=== PATIENT | female | born 1970 | race Caucasian/White ===

== ENCOUNTER 2017-02-26 17:58 | Emergency (ER) | payer MEDICARE ==
[~2017-02-26 17:58] MED LIST: ELAVIL 25 MG TA25 MG PO; IMITREX100 MG PO; LOVASTATIN40 MG PO; METHIMAZOLE10 MG PO; PREMARIN 1.251.25 MG PO; PROTONIX 40 MG40 M1 PO; PROZAC40 MG PO; REGLAN10 MG PO; SINEMET 10/100 T1 EA PO; VERAPAMIL ER120 MG PO; VERAPAMIL HCL80 MG PO
[2017-02-26 20:01] LABS: HEMOGLOBIN 12.6 gm/dl (12.3-15.3); RED BLOOD COUNT 4.42 M/UL (4.00-5.10); WHITE BLOOD COUNT 12.2 K/UL (4.5-11.0)
[2017-02-26 20:20] LABS: BUN/CREATININE RATIO 10 (0-10)
== END 2017-02-26 22:42 | disposition home or self-care (01) ==
LOC: ER1 17:58
PROVIDERS: Family Medicine
DX: R06.02 Shortness of breath (principal); K21.9 Gastro-esophageal reflux disease without esophagitis
CPT/HCPCS: 36415; 71020; 80053; 82550; 82553; 83874; 84439; 84443; 84484; 85025; 85379; 93005; 94640; 94664; 96374; 99285; J2060

== ENCOUNTER 2017-03-17 05:03 | Emergency (ER) | payer MEDICARE ==
[2017-03-17 07:00] LABS: HEMOGLOBIN 12.4 gm/dl (12.3-15.3); RED BLOOD COUNT 4.37 M/UL (4.00-5.10); WHITE BLOOD COUNT 10.1 K/UL (4.5-11.0)
[2017-03-17 07:16] LABS: BUN/CREATININE RATIO 15 (0-10)
== END 2017-03-17 13:02 | disposition home or self-care (01) ==
LOC: ER1 05:03
PROVIDERS: Family Medicine
DX: R10.31 Right lower quadrant pain (principal); R11.0 Nausea; R68.83 Chills (without fever)
CPT/HCPCS: 36415; 76705; 80053; 81001; 83690; 85025; 96374; 96375; 96376; 99284; J2270; J2405; J7050; Q9962

== ENCOUNTER 2017-03-21 15:46 | Emergency (ER) | payer MEDICARE ==
[2017-03-21 17:44] LABS: HEMOGLOBIN 12.9 gm/dl (12.3-15.3); RED BLOOD COUNT 4.56 M/UL (4.00-5.10); WHITE BLOOD COUNT 8.9 K/UL (4.5-11.0)
[2017-03-21 18:16] LABS: BUN/CREATININE RATIO 15 (0-10)
== END 2017-03-21 21:50 | disposition home or self-care (01) ==
LOC: ER1 15:46
PROVIDERS: Physician Assistant
DX: K80.50 Calculus of bile duct without cholangitis or cholecystitis without obstruction (principal)
CPT/HCPCS: 36415; 80053; 81001; 82150; 83690; 85025; 96374; 96375; 96376; 99284; J2270; J2405

== ENCOUNTER → 2017-03-22 | Outpatient (CLI) | payer MEDICARE ==
[~2017-03-22] MED LIST changes: +BRINTELLIX10 MG PO; +DESYREL 50 MG T50 MG PO; +DULCOLAX5 MG PO; +FERROUS GLUCON324 M1 PO; +LORTAB 7.5-3251 EACH PO; +ROPINIROLE HCL0.5 MG PO; +ZOFRAN8 MG PO
== END ==
LOC: NM 09:49
DX: R10.11 Right upper quadrant pain (principal); R93.2 Abnormal findings on diagnostic imaging of liver and biliary tract
CPT/HCPCS: 78227; A9537

== ENCOUNTER 2017-03-27 09:36 | Day surgery (SDC) | payer MEDICARE ==
[~2017-03-27] VITALS: Ht 154.9 cm; Wt 80.7 kg
[~2017-03-27 09:36] MED LIST changes: -BRINTELLIX10 MG PO; -DESYREL 50 MG T50 MG PO; -DULCOLAX5 MG PO; -FERROUS GLUCON324 M1 PO; -LORTAB 7.5-3251 EACH PO; -ROPINIROLE HCL0.5 MG PO; -ZOFRAN8 MG PO
[2017-03-27] MEDS ORDERED: DESYREL 50 MG T50 MG PO (10:23)
[2017-03-27] MEDS ORDERED: ELAVIL 25 MG TA25 MG PO (10:24)
[2017-03-27] MEDS ORDERED: FERROUS GLUCON324 M1 PO (10:25)
[2017-03-27] MEDS ORDERED: ROPINIROLE HCL0.5 MG PO (10:26)
[2017-03-27] MEDS ORDERED: BRINTELLIX10 MG PO (10:27)
[2017-03-27] MEDS ORDERED: VERAPAMIL HCL80 MG PO (17:02)
[2017-03-27] MEDS ORDERED: IMITREX100 MG PO (17:02)
[2017-03-27] MEDS ORDERED: ZOFRAN8 MG PO (17:03)
[2017-03-27] MEDS ORDERED: DULCOLAX5 MG PO (17:18)
[2017-03-27] MEDS ORDERED: PROZAC40 MG PO (17:18)
[2017-03-27 21:13] LABS: HEMOGLOBIN 11.9 gm/dl (12.3-15.3); RED BLOOD COUNT 4.2 M/UL (4.00-5.10); WHITE BLOOD COUNT 10.6 K/UL (4.5-11.0)
[2017-03-27 21:29] LABS: BUN/CREATININE RATIO 10 (0-10)
[2017-03-28 02:27] LABS: HEMOGLOBIN 11.3 gm/dl (12.3-15.3); RED BLOOD COUNT 4.03 M/UL (4.00-5.10)
--- NOTE | 2017-03-28 11:27 | NUR ---
REPORTED TO DR. BROOKS PATIENT PULSE OX SATURATION, DR. QUINTANA'S ORDER, ACKNOWLEDGED
--- NOTE | 2017-03-28 12:23 | NUR ---
PATIENT AMBULATES HALLWAY, TOLERATED WELL. DENIES SOB, CHEST PAIN. PATIENT HAS BEEN USING INCENTIVE SPIROMETER UP TO 1000, AND PERFORMING WELL. VERB KNOWLEDGED THE IMPORTANCE OF USING INCENTIVE SPIROMETER.
[2017-03-28] MEDS ORDERED: BRINTELLIX10 MG PO (15:54)
[2017-03-28] MEDS ORDERED: LORTAB 7.5-3251 EACH PO (17:03)
== END 2017-03-28 17:23 | disposition home or self-care (01) ==
LOC: OR 09:36 → M/S 16:06 → OR 03-28 17:23
PROVIDERS: Surgery
PROC: 0FT44ZZ Resection of Gallbladder, Percutaneous Endoscopic Approach (ICD-10-PCS; principal; 2017-03-27 13:30)
DX: K81.1 Chronic cholecystitis (principal); R09.02 Hypoxemia; J98.11 Atelectasis; K21.9 Gastro-esophageal reflux disease without esophagitis; M10.9 Gout, unspecified; E78.00 Pure hypercholesterolemia, unspecified; E78.5 Hyperlipidemia, unspecified; F41.9 Anxiety disorder, unspecified; F32.9 Major depressive disorder, single episode, unspecified; G43.909 Migraine, unspecified, not intractable, without status migrainosus; Z87.442 Personal history of urinary calculi; Z88.1 Allergy status to other antibiotic agents; Z79.899 Other long term (current) drug therapy; Z88.8 Allergy status to other drugs, medicaments and biological substances; Z90.710 Acquired absence of both cervix and uterus; Z90.49 Acquired absence of other specified parts of digestive tract
CPT/HCPCS: 36415; 71010; 80053; 82550; 82553; 83880; 84484; 85025; 85027; 93005; J0690; J1100; J1885; J2250; J2270; J2405; J2550; J2710; J3010; J7030; J7050; J7120; Q9962

== ENCOUNTER 2017-04-25 15:45 | Emergency (ER) | payer MEDICARE ==
[~2017-04-25 15:45] MED LIST changes: +BRINTELLIX10 MG PO; +DESYREL 50 MG T50 MG PO; +DULCOLAX5 MG PO; +FERROUS GLUCON324 M1 PO; +LORTAB 7.5-3251 EACH PO; +ROPINIROLE HCL0.5 MG PO; +ZOFRAN8 MG PO
[2017-04-25 17:27] LABS: HEMOGLOBIN 12.3 gm/dl (12.3-15.3); RED BLOOD COUNT 4.41 M/UL (4.00-5.10); WHITE BLOOD COUNT 9.8 K/UL (4.5-11.0)
[2017-04-25 18:02] LABS: BUN/CREATININE RATIO 11 (0-10)
== END 2017-04-25 21:08 | disposition home or self-care (01) ==
LOC: ER1 15:45
PROVIDERS: Physician Assistant
DX: R07.89 Other chest pain (principal); E78.5 Hyperlipidemia, unspecified; K21.9 Gastro-esophageal reflux disease without esophagitis; F32.9 Major depressive disorder, single episode, unspecified; E87.6 Hypokalemia; F41.9 Anxiety disorder, unspecified; Z88.2 Allergy status to sulfonamides; Z88.8 Allergy status to other drugs, medicaments and biological substances; Z79.899 Other long term (current) drug therapy
CPT/HCPCS: 36415; 71010; 80053; 82550; 82553; 83874; 84484; 85025; 93005; 99285

== ENCOUNTER 2017-05-03 13:57 | Emergency (ER) | payer MEDICARE ==
[2017-05-03 15:03] LABS: HEMOGLOBIN 11.6 gm/dl (12.3-15.3); RED BLOOD COUNT 4.16 M/UL (4.00-5.10)
[2017-05-03 15:32] LABS: BUN/CREATININE RATIO 8 (0-10)
== END 2017-05-03 18:05 | disposition home or self-care (01) ==
LOC: ER1 13:57
PROVIDERS: Emergency Medicine
DX: R07.89 Other chest pain (principal); R10.9 Unspecified abdominal pain; E78.5 Hyperlipidemia, unspecified; F41.9 Anxiety disorder, unspecified; F32.9 Major depressive disorder, single episode, unspecified
CPT/HCPCS: 36415; 71020; 80053; 81001; 83690; 84484; 85025; 85379; 93005; 94664; 96374; 96375; 99285; J2270; J2405

== ENCOUNTER 2020-12-27 11:34 | Emergency (ER) | payer OTHER ==
[~2020-12-27 11:34] MED LIST changes: +BENTYL 20MG TAB20 MG PO; +CORTIZONE-1057 GM TP; +FEOSOL325 MG PO; -FERROUS GLUCON324 M1 PO; +FLAGYL500 MG PO; +HYDROXYZINE HCL10 MG PO; +KEFLEX CAP 500500 MG PO; +NEURONTIN 100100 MG PO; +OMNICEF 300 MG300 MG PO; +PREDNISONE 50 M50 MG PO; +ROBAXIN500 MG PO; +TRILEPTAL150 MG PO; +TRILEPTAL300 MG PO; +TRINTELLIX PO; +VISTARIL25 MG PO; +ZOFRAN4 MG PO
[2020-12-27 14:11] LABS: HEMOGLOBIN 13.1 gm/dl (12.3-15.3); RED BLOOD COUNT 4.31 M/UL (4.00-5.10); WHITE BLOOD COUNT 7.5 K/UL (4.5-11.0)
[2020-12-27 14:30] LABS: BUN/CREATININE RATIO 8 (0-10)
[2020-12-27] MEDS ORDERED: TORADOL 10 MG T10 MG PO ×2 (15:50→15:55)
[2020-12-27] MEDS ORDERED: CYCLOBENZAPRINE5 MG PO (15:50)
== END 2020-12-27 16:48 | disposition home or self-care (01) ==
LOC: ER1 11:34
PROVIDERS: Physician Assistant
DX: M54.5 Low back pain (principal); G89.29 Other chronic pain; R10.30 Lower abdominal pain, unspecified; E87.6 Hypokalemia; M47.816 Spondylosis without myelopathy or radiculopathy, lumbar region; E11.9 Type 2 diabetes mellitus without complications; K21.9 Gastro-esophageal reflux disease without esophagitis; Z79.84 Long term (current) use of oral hypoglycemic drugs; Z87.442 Personal history of urinary calculi; Z79.891 Long term (current) use of opiate analgesic
CPT/HCPCS: 72100; 80053; 81001; 85025; 87086; 96372; 99283; J1885

== ENCOUNTER 2021-08-08 18:24 | Emergency (ER) | payer OTHER ==
[~2021-08-08 18:24] MED LIST changes: +CYCLOBENZAPRINE5 MG PO; +TORADOL 10 MG T10 MG PO
[2021-08-08 19:21] LABS: HEMOGLOBIN 12.1 gm/dl (12.3-15.3); RED BLOOD COUNT 4.17 M/UL (4.00-5.10); WHITE BLOOD COUNT 11.7 K/UL (4.5-11.0)
[2021-08-08 19:42] LABS: BUN/CREATININE RATIO 24 (0-10)
== END 2021-08-08 20:45 | disposition home or self-care (01) ==
LOC: ER1 18:24
PROVIDERS: Physician Assistant
DX: R10.32 Left lower quadrant pain (principal); R10.12 Left upper quadrant pain; E11.9 Type 2 diabetes mellitus without complications; Z90.49 Acquired absence of other specified parts of digestive tract; E78.5 Hyperlipidemia, unspecified; Z90.710 Acquired absence of both cervix and uterus
CPT/HCPCS: 80053; 81001; 83690; 85025; 87086; 96374; 96375; 99284; J1885; J2270; J2405

== ENCOUNTER 2021-10-28 09:45 | Emergency (ER) | payer OTHER ==
[2021-10-28 10:49] LABS: HEMOGLOBIN 12.6 gm/dl (12.3-15.3); RED BLOOD COUNT 4.23 M/UL (4.00-5.10); WHITE BLOOD COUNT 9.3 K/UL (4.5-11.0)
[2021-10-28 11:44] LABS: BUN/CREATININE RATIO 11 (0-10)
== END 2021-10-28 12:55 | disposition home or self-care (01) ==
LOC: ER1 09:45
PROVIDERS: Emergency Medicine
DX: M26.601 Right temporomandibular joint disorder, unspecified (principal); H92.01 Otalgia, right ear; R51.9 Headache, unspecified; E78.5 Hyperlipidemia, unspecified
CPT/HCPCS: 70450; 80053; 85025; 85652; 86140; 87040; 99283

== ENCOUNTER → 2022-06-14 | Outpatient (CLI) | payer OTHER | LOC: KOH-I 12:53 | DX: G56.03 Carpal tunnel syndrome, bilateral upper limbs (principal); M17.0 Bilateral primary osteoarthritis of knee | CPT/HCPCS: 73110; 73130; 73560 ==